=== PATIENT | female | born 1995 | race Caucasian/White ===

== ENCOUNTER 2017-01-03 11:20 | Emergency (ER) | payer OTHER ==
--- NOTE | 2017-01-03 11:38 | UC ---
Throat Pain/Nasal Deshaun HPI - HPI Summary HPI Summary: 21 YEAR OLD FEMALE WITH A HISTORY OF ALLERGIES PRESENTS WITH COMPLAINS OF SINUS CONGESTION/PAIN. - History of Current Complaint Chief Complaint: UCRespiratory Stated Complaint: SINUS COMPLAINT Time Seen by Provider: 01/03/17 11:37 Hx Obtained From: Patient Onset/Duration: Sudden Onset Severity: Moderate Pain Scale Used: 0-10 Numeric - 5 Cough: Nonproductive Associated Signs & Symptoms: Positive: Negative - Allergies/Home Medications Allergies/Adverse Reactions: Allergies Allergy/AdvReac Type Severity Reaction Status Date / Time No Known Allergies Allergy Verified 09/04/15 09:59 Home Medications: Home Medications Fexofenadine (NF) [Radha 180 (NF)] 180 mg PO 01/03/17 [History] Ibuprofen [Advil] 400 mg PO 01/03/17 [History] Pseudoephedrine HCl [Sudafed Congestion] 30 mg PO 01/03/17 [History] PMH/Surg Hx/FS Hx/Imm Hx Previously Healthy: Yes - Surgical History Surgical History: Yes Surgery Procedure, Year, and Place: WISDOM TEETH; EAR TUBES CHILD Review of Systems Constitutional: Negative Skin: Negative Eyes: Negative ENT: Sore Throat, Nasal Discharge, Sinus Congestion, Sinus Pain/Tenderness Respiratory: Negative Cardiovascular: Negative Gastrointestinal: Negative Genitourinary: Negative Motor: Negative Neurovascular: Negative Musculoskeletal: Negative Neurological: Negative Psychological: Negative All Other Systems Reviewed And Are Negative: Yes Physical Exam Triage Information Reviewed: Yes Eye Exam: Normal ENT: Positive: Pharyngeal erythema, Nasal congestion Dental Exam: Normal Neck exam: Normal Neck: Positive: 1 Respiratory Exam: Normal Cardiovascular Exam: Normal Abdominal Exam: Normal Musculoskeletal Exam: Normal Neurological Exam: Normal Psychological Exam: Normal Skin Exam: Normal Throat Pain/Nasal Course/Dx - Differential Dx/Diagnosis Provider Diagnoses: SINUSITIS Discharge - Discharge Plan Condition: Stable Disposition: HOME Prescriptions: Amoxicillin/Clavulanate TAB* [Augmentin TAB 875*] 875 mg PO BID #20 tab Methylprednisolone [Medrol Dosepak 4 MG*] 4 mg PO .SEE [employer]CTION #21 tab Patient Education Materials: Sinusitis (ED) Referrals: No Primary Care Phys,NOPCP [Primary Care Provider] -
[2017-01-03 11:39] VITALS: BP 123/71
== END 2017-01-03 12:07 | disposition home or self-care (01) ==
LOC: UCEAST 11:20
DX: J32.9 Chronic sinusitis, unspecified (principal)
CPT/HCPCS: 99212; G0463

== ENCOUNTER 2017-08-29 08:17 | Emergency (ER) | payer OTHER ==
[2017-08-29 08:31] VITALS: BP 152/94
--- NOTE | 2017-08-29 09:05 | UC ---
Abdominal Pain Female HPI - HPI Summary HPI Summary: For at least 3 weeks pt has noticed marked gas and bloating with any amount of eating; trying to eat small meals without help. Was constipated for a couple weeks, went home and experienced improvement over spring, started probiotics, and now having daily normal BMs without blood or pain. Though the bloating is very uncomfortable, pt denies overt belly pain, no reflux symptoms or vomiting. No prior abd surgeries. Has tried not eating certain food such as dairy or wheat, but only meal by meal. No extended elimination. Pt is student, will graduate within 6 weeks, then moving home to [place] briefly before moving across country for new job. - History of Current Complaint Chief Complaint: UCAbdominalPain Stated Complaint: BLOATING, DIGESTIVE ISSUES Time Seen by Provider: 08/29/17 08:23 Hx Obtained From: Patient Hx Last Menstrual Period: 08/24/17 ?: No Onset/Duration: Gradual Onset, Lasting Weeks Timing: Intermittent Episodes Lasting: - hours Severity Initially: Mild Severity Currently: Mild Pain Intensity: 0 Location: Diffuse Radiates: No Character: Dull Aggravating Factor(s): Food Alleviating Factor(s): Nothing Associated Signs and Symptoms: Positive: Constipation. Negative: Cough, Chest Pain, Back Pain, Blood in Stool, Vaginal Discharge, Nausea, Vomiting, Diarrhea Allergies/Adverse Reactions: Allergies Allergy/AdvReac Type Severity Reaction Status Date / Time karla Allergy Anaphylatic Verified 08/29/17 08:31 Shock Tree Nuts Allergy Anaphylatic Verified 08/29/17 08:31 Shock PMH/Surg Hx/FS Hx/Imm Hx Previously Healthy: Yes - Surgical History Surgical History: Yes Surgery Procedure, Year, and Place: WISDOM TEETH; EAR TUBES CHILD - Family History Known Family History: Negative: Blood Disorder - Social History Occupation: Student Lives: Alone Alcohol Use: Occasionally Substance Use Type: None Smoking Status (MU): Never Smoked Tobacco Review of Systems Constitutional: Negative Skin: Negative Eyes: Negative ENT: Negative Respiratory: Negative Cardiovascular: Negative Gastrointestinal: Other - gas Genitourinary: Negative Motor: Negative Neurovascular: Negative Musculoskeletal: Negative Neurological: Negative Psychological: Negative Is Patient Immunocompromised?: No All Other Systems Reviewed And Are Negative: Yes Physical Exam Triage Information Reviewed: Yes Appearance: Well-Appearing, No Pain Distress, Well-Nourished Vital Signs: Initial Vital Signs Temp 97.7 F 08/29/17 08:26 Pulse 96 08/29/17 08:26 Resp 16 08/29/17 08:26 BP 152/94 08/29/17 08:26 Pulse Ox 100 08/29/17 08:26 Vital Signs Reviewed: Yes Eye Exam: Normal Eyes: Positive: Conjunctiva Clear ENT Exam: Normal ENT: Positive: Normal ENT inspection, Hearing grossly normal, Pharynx normal, TMs normal Dental Exam: Normal Neck exam: Normal Neck: Positive: Supple, Nontender, No Lymphadenopathy Respiratory Exam: Normal Respiratory: Positive: Chest non-tender, Lungs clear, Normal breath sounds, No respiratory distress, No accessory muscle use Cardiovascular Exam: Normal Cardiovascular: Positive: RRR, No Murmur Abdominal Exam: Other - very active BS Abdomen Description: Positive: Nontender, No Organomegaly, Soft Bowel Sounds: Positive: Present Musculoskeletal Exam: Normal Neurological Exam: Normal Neurological: Positive: Alert Psychological Exam: Normal Skin Exam: Normal Abd Pain Female Course/Dx - Differential Dx/Diagnosis Differential Diagnosis: Constipation, Irritable Bowel Syndrome, Ovarian Cyst Provider Diagnoses: Abdominal bloating Discharge - Sign-Out/Discharge Documenting (check all that apply): Discharge - Discharge Plan Condition: Stable Disposition: HOME Patient Education Materials: Indigestion (ED) Referrals: [facility] [Provider Group] [facility] [Provider Group] Additional Instructions: As we discussed, your symptoms of bloating probably need some non-emergent work- up by a primary care provider or a specialist who deals with food allergies/ intolerance. There are not worrisome features of your bloating at this time, but you should be seen again if you develop persistent pain, bleeding from the anus, unexpected weight loss, or any severe symptoms. Try an elimination diet while you await a follow-up exam. Good foods to start with are dairy, wheat/gluten, and soy. Read labels carefully and avoid each one in turn for at least 2 weeks. There are many other foods you may move onto, but hopefully you will be under the care of a specialist or your PCP. - Billing Disposition and Condition Condition: STABLE Disposition: HOME
== END 2017-08-29 09:06 | disposition home or self-care (01) ==
LOC: UCEAST 08:17
DX: R14.0 Abdominal distension (gaseous) (principal); K59.00 Constipation, unspecified
CPT/HCPCS: 99211; G0463